=== PATIENT | female | born 1940 ===

== ENCOUNTER 2022-03-22 06:00 | Outpatient (RCR) | payer MEDICARE, SELFPAY | END 2022-04-17 23:59 | disposition home or self-care (01) | LOC: MOT 06:00 | PROVIDERS: PCP Family Medicine; Referring Provider Nurse Practitioner; Visit Provider Nurse Practitioner | DX: I89.0 Lymphedema, not elsewhere classified (principal) | CPT/HCPCS: 97140; 97166 ==

== ENCOUNTER 2022-05-20 06:00 | Outpatient (RCR) | payer MEDICARE, SELFPAY | END 2022-06-17 23:59 | disposition home or self-care (01) | LOC: MOT 06:00 | PROVIDERS: PCP Family Medicine; Referring Provider Nurse Practitioner; Visit Provider Nurse Practitioner | DX: I89.0 Lymphedema, not elsewhere classified (principal) | CPT/HCPCS: 97140; 97165 ==

== ENCOUNTER 2022-06-18 06:00 | Outpatient (RCR) | payer MEDICARE, SELFPAY | END 2022-07-18 23:59 | disposition home or self-care (01) | LOC: MOT 06:00 | PROVIDERS: PCP Family Medicine; Visit Provider Nurse Practitioner | DX: I89.0 Lymphedema, not elsewhere classified (principal) | CPT/HCPCS: 97140 ==

== ENCOUNTER 2022-07-19 06:00 | Outpatient (RCR) | payer MEDICARE, SELFPAY | END 2022-08-17 23:59 | disposition home or self-care (01) | LOC: MOT 06:00 | PROVIDERS: PCP Family Medicine; Visit Provider Nurse Practitioner | DX: I89.0 Lymphedema, not elsewhere classified (principal) | CPT/HCPCS: 97140 ==

== ENCOUNTER 2022-10-19 06:00 | Outpatient (RCR) | payer MEDICARE, OTHER, SELFPAY | END 2022-11-15 23:59 | disposition home or self-care (01) | LOC: MOT 06:00 | PROVIDERS: PCP Family Medicine; Visit Provider Nurse Practitioner | DX: I89.0 Lymphedema, not elsewhere classified (principal) | CPT/HCPCS: 97140; 97166 ==

== ENCOUNTER 2022-11-16 06:00 | Outpatient (RCR) | payer MEDICARE, OTHER, SELFPAY | END 2022-12-16 23:59 | disposition home or self-care (01) | LOC: MOT 06:00 | PROVIDERS: PCP Family Medicine; Visit Provider Nurse Practitioner | DX: I89.0 Lymphedema, not elsewhere classified (principal) | CPT/HCPCS: 97140 ==

== ENCOUNTER 2022-12-17 06:00 | Outpatient (RCR) | payer MEDICARE, OTHER, SELFPAY | END 2023-01-15 23:59 | disposition home or self-care (01) | LOC: MOT 06:00 | PROVIDERS: PCP Family Medicine; Visit Provider Nurse Practitioner | DX: I89.0 Lymphedema, not elsewhere classified (principal) | CPT/HCPCS: 97140 ==

== ENCOUNTER 2023-02-20 06:00 | Outpatient (RCR) | payer MEDICARE, OTHER, SELFPAY | END 2023-03-17 23:59 | disposition home or self-care (01) | LOC: MOT 06:00 | PROVIDERS: Visit Provider Nurse Practitioner | DX: I89.0 Lymphedema, not elsewhere classified (principal) | CPT/HCPCS: 97140; 97166 ==

== ENCOUNTER 2023-03-18 06:00 | Outpatient (RCR) | payer MEDICARE, OTHER, SELFPAY | END 2023-03-20 23:59 | disposition home or self-care (01) | LOC: MOT 06:00 | PROVIDERS: Visit Provider Nurse Practitioner | DX: I89.0 Lymphedema, not elsewhere classified (principal) | CPT/HCPCS: 97140 ==

== ENCOUNTER 2023-05-03 06:00 | Outpatient (RCR) | payer MEDICARE, OTHER, SELFPAY | END 2023-05-18 23:59 | disposition home or self-care (01) | LOC: MOT 06:00 | PROVIDERS: Visit Provider Nurse Practitioner | DX: I89.0 Lymphedema, not elsewhere classified (principal) | CPT/HCPCS: 97140; 97166 ==

== ENCOUNTER 2023-05-19 06:00 | Outpatient (RCR) | payer MEDICARE, OTHER, SELFPAY | END 2023-05-31 23:59 | disposition home or self-care (01) | LOC: MOT 06:00 | PROVIDERS: Visit Provider Nurse Practitioner | DX: I89.0 Lymphedema, not elsewhere classified (principal) | CPT/HCPCS: 97140 ==

== ENCOUNTER 2023-09-20 06:00 | Outpatient (RCR) | payer MEDICARE, OTHER, SELFPAY | END 2023-10-18 23:59 | disposition home or self-care (01) | LOC: MOT 06:00 | PROVIDERS: Visit Provider Nurse Practitioner | DX: I89.0 Lymphedema, not elsewhere classified (principal) | CPT/HCPCS: 97140; 97166 ==

== ENCOUNTER 2024-01-30 06:00 | Outpatient (RCR) | payer MEDICARE, SELFPAY | END 2024-02-16 23:59 | disposition home or self-care (01) | LOC: MOT 06:00 | PROVIDERS: PCP Nurse Practitioner; Visit Provider Nurse Practitioner | DX: I89.0 Lymphedema, not elsewhere classified (principal) | CPT/HCPCS: 97140; 97166 ==